=== PATIENT | female | born 1985 | race Caucasian/White ===

== ENCOUNTER → 2024-10-13 09:25 | Outpatient (REF) | payer BC, SELFPAY | LOC: HWWDC 09:25 | PROVIDERS: ATTENDING PHYSICIAN Nurse Practitioner Family | DX: Z12.31 Encounter for screening mammogram for malignant neoplasm of breast (principal) | CPT/HCPCS: 77063; 77067 ==

== ENCOUNTER 2024-12-26 13:05 | Emergency (ER) | payer BC, SELFPAY ==
[2024-12-26 13:10] VITALS: BP 137/95
--- NOTE | 2024-12-26 14:38 | ED.GENMED ---
History of Present Illness
General
Chief Complaint: Head Injury
Time Seen by Provider: 12/26/24 13:37
History of Present Illness
History of Present Illness:
39-year-old female presents the emergency department for evaluation of dizziness, nausea, and vomiting after head injury last night. She admits to alcohol intoxication and fell, she does not know the exact details. Awoke today with a headache and
vomiting. Does not take blood thinners. No chest pain or shortness of breath. No abdominal pain.
Past History
Past History
ED Past Medical History: None
ED Past Surgical History: Orthopedic (elbow)
Social History
Tobacco: Non-smoker
Alcohol: Occasional
Personal:
Living: with family
Employment: Employed
Review of Systems
Review of Systems
Allergies reviewed?: Yes
All Other Systems: ROS reviewed and negative except as documented in HPI and ROS
Phy Exam
Physical Exam
Physical Exam:
GEN: Well appearing, NAD, WDWN
HEENT: Normocephalic and atraumatic oral mucosa moist, no scleral icterus, no nasal congestion
Cardiac: Regular rate
Lung: No respiratory distress, no tachypnea
MSK: No gross deformity or injuries
Skin: Good color, no pallor or jaundice, no rashes
Neuro: AO x3; CN II-XII grossly intact. BUE strength 5/5 in all sheppard, sensation intact and symmetric. BLE strength 5/5 in all sheppard, sensation intact and symmetric
Psych: Calm, cooperative
Course
Orders/Labs/Results
Orders:
Orders
12/26/24 13:13
CT Head W/o Iv Contrast Urgent
Comment: today feels woozy and n/v
Reason For Exam: fell lastl night and passed out
12/26/24 14:42
Ondansetron Orally Disint [Zofran Odt (Orally Disintegrating)] 4 mg PO NOW STA
12/26/24 14:45
Ondansetron Orally Disint [Zofran Odt (Orally Disintegrating)] 4 mg .ROUTE .STK-MED ONE
Vital Signs
Initial and Last Documented VS:
Initial Vital Signs
Temp Pulse Resp BP Pulse Ox
98.0 F 97 16 137/95 98
12/26/24 13:10 12/26/24 13:10 12/26/24 13:10 12/26/24 13:10 12/26/24 13:10
Last Documented Vital Signs
Temp Pulse Resp BP Pulse Ox
98.0 F 97 16 137/95 98
12/26/24 13:10 12/26/24 13:10 12/26/24 13:10 12/26/24 13:10 12/26/24 14:39
MDM/Problems Addressed
MDM/Problems Addressed:
Likely mild concussion, CT of the head is unremarkable. No focal neurodeficits at emergency department that would warrant follow-up imaging
*Pulse Oximetry
SaO2: 98
Oxygen Mode of Delivery: Room air
Patient hypoxic: no
*Critical Care Note
Total Time (30-74mins, 75-104mins- exclusive of procedures): Not Applicable
ED Attending Note
-
Portions of this chart may have been created with voice recognition software.� Occasional wrong word or��sound alike� substitutions may have occurred due to the inherent limitations of voice recognition software.
Discharge Plan
Departure
Patient Disposition: Home (Routine Discharge)
Date of Disposition: 12/26/24
Time of Disposition: 14:38
Patient with high blood pressure during this ER visit?: No
Discharge Problem:
Concussion
Instructions: Concussion, Adult (DC)
Prescriptions:
No Action
prenat.vits,luis armando,mos-vhbw-ovynr [ Vitamin] 1 EACH tablet
1 tab PO DAILY
ibuprofen 600 MG tablet
600 mg PO Q4HPRN PRN (Reason: moderate pain/cramps) 0RF
Referrals:
Ann Marie Coker NP [Family Provider, Internal Medicine]
Interventions
Interventions:
*Risk Screen - Suicide Last Done: 12/26/24 13:10
*Neglect/Abuse Screening Last Done: 12/26/24 13:10
*Nursing Disposition Last Done: 12/26/24 14:48
ED- Neurological Assessment Last Done: 12/26/24 14:47
Discharge Date and Time
Discharge Date/Time: 12/26/24 14:48
Print Language: YORUBA
[2024-12-26] MEDS: ZOFRAN ODT (ORALLY DISINTEGRATING) 4 MG PO (14:46)
== END 2024-12-26 14:48 | disposition home or self-care (01) ==
LOC: EMR 13:05
PROVIDERS: EMERGENCY PHYSICIAN Emergency Medicine; FAMILY PHYSICIAN Nurse Practitioner Family
DX: S06.0XAA Concussion with loss of consciousness status unknown, initial encounter (principal); W19.XXXA Unspecified fall, initial encounter
CPT/HCPCS: 99284; 70450